=== PATIENT | female | born 1950 | race Caucasian/White ===

== ENCOUNTER 2016-05-01 09:34 | Day surgery (SDC) | payer MEDICARE, BC ==
[~2016-05-01 09:34] MED LIST: Metoclopramide 10 MG/2 ML SDV IV PRN; Sodium Chloride 0.9% 1,000 ML IV SCH; Sodium Chloride 0.9% 10 ML Syringe FLUSH PRN
[2016-05-01] MEDS ORDERED: Propofol 200 MG/20 ML SDV ONE (12:30)
[2016-05-01] MEDS ORDERED: Atropine 0.4 MG/ML SDV ONE (12:30)
[2016-05-01] MEDS ORDERED: Midazolam 1 MG/ML 5 ML SDV ONE (12:30)
--- NOTE | 2016-05-01 14:00 | OR ---
DATE OF OPERATION: PREOPERATIVE DIAGNOSIS: Screening colonoscopy. POSTOPERATIVE DIAGNOSES: 1. Diverticulosis coli. 2. No proctitis. OPERATION: Screening colonoscopy with biopsies. COMPLICATIONS: None. DRAINS: None. SPECIMENS: Rectal biopsies. ESTIMATED BLOOD LOSS: Minimal. ANESTHESIA: General propofol anesthesia. INDICATION: Mrs. Cid is a 65-year-old female, who is considered increased risk for colon cancer due to family history. She is here for a screening colonoscopy. She is currently asymptomatic. The above-mentioned procedure was explained. The risks, benefits, and complications were explained. The patient understood, agreed, and was brought to the operating room. DESCRIPTION OF PROCEDURE: The patient was brought to the operating room and placed in the left lateral decubitus position on the operating room table. Satisfactory general propofol anesthesia was administered. We began by performing a rectal examination, which was within normal limits. We then placed the endoscope by finger introduction into the rectum and subsequently advanced to the level of the cecum. Cecum was identified by the appendiceal orifice, the ileocecal valve, and the cecal strap. Then a careful evaluation of the mucosa was performed on withdrawal. This revealed no polyps, no telangiectasias; however, there was [id number] diverticulosis involving the transverse colon, the splenic flexure, descending colon, and the sigmoid colon. There were no neoplastic growths. The rectum did appear quite erythematous as well as granular in nature and this seemed to be isolated more towards the anterior wall of the rectum. We did take several biopsies of this tissue. Retroflexion in the rectum revealed no other abnormalities. The colon was then decompressed and the endoscope was withdrawn. The patient tolerated the procedure well. There were no complications. Instrument count was correct. MARQUIS/KATHIA /[id number]
[2016-05-01 14:31] VITALS: BP 144/75
== END 2016-05-01 14:30 | disposition home or self-care (01) ==
LOC: LB.SDS 09:34
PROVIDERS: ATTEND Surgery
DX: Z12.11 Encounter for screening for malignant neoplasm of colon (principal); K57.30 Diverticulosis of large intestine without perforation or abscess without bleeding; I25.10 Atherosclerotic heart disease of native coronary artery without angina pectoris; I10 Essential (primary) hypertension; F32.9 Major depressive disorder, single episode, unspecified; Z88.8 Allergy status to other drugs, medicaments and biological substances; Z79.82 Long term (current) use of aspirin; Z79.899 Other long term (current) drug therapy
CPT/HCPCS: 45380; 88305; J0461; J2250; J2704; J7040

== ENCOUNTER 2019-01-26 16:01 | Emergency (ER) | payer MEDICARE, OTHER ==
--- NOTE | 2019-01-26 17:43 | EDM.PDOC ---
ED HPI GENERAL MEDICAL PROBLEM - General Chief Complaint: General Stated Complaint: PASSED OUT Time Seen by Provider: 01/26/19 17:00 Source of Information: Reports: Patient, Family History Limitations: Reports: No Limitations - History of Present Illness INITIAL COMMENTS - FREE TEXT/NARRATIVE: This is a 68yo F who states she was taking a nap and then got up quickly to go into the kitchen and within minutes passed out. She does not recall passing out. Her son Jean was present and noted her thinking she tripped and then looking faint and then passing out for a very minimal time with full recovery in minutes and no lethargy or post-ictal symptoms. Patient states she is fine. She denies any prior episodes of this. She notes she did not drink anything all day, she had not eaten since the am and got up very quickly compared to her normal. Onset: Sudden Duration: Resolved Prior to Arrival Location: Reports: Generalized - Related Data Allergies Allergy/AdvReac Type Severity Reaction Status Date / Time propoxyphene HCl Allergy Anaphylactic Verified 05/28/14 19:15 [From [facility]] Shock Home Meds: Home Meds FLUoxetine HCl [Fluoxetine HCl] 40 mg PO DAILY 05/28/14 [History] Omeprazole 20 mg PO DAILY 05/28/14 [History] buPROPion [Wellbutrin XL] 300 mg PO DAILY 05/28/14 [History] Loperamide [Imodium] 2 mg PO Q6H PRN 07/22/14 [History] Metoprolol Tartrate [Lopressor] 75 mg PO Q12HR 07/23/14 [History] Tolterodine Tartrate [Detrol LA] 4 mg PO 04/30/16 [History] Past Medical History HEENT History: Reports: Cataract Cardiovascular History: Reports: High Cholesterol, Hypertension Respiratory History: Reports: Other (See Below) Other Respiratory History: SARCODOSIS Gastrointestinal History: Reports: Diverticulosis DEMOLITIONIST History: Reports: Other (See Below) Other DEMOLITIONIST History: 4 CHILDREN Musculoskeletal History: Reports: Fibromyalgia - Infectious Disease History Infectious Disease History: Reports: Chicken Pox, Measles, Shingles - Past Surgical History Cardiovascular Surgical History: Reports: None GI Surgical History: Reports: None Musculoskeletal Surgical History: Reports: None Social & Family History - Family History Oncologic: Reports: Breast, Colon, Lung, Other (See Below) Other Oncologic Family History: SISTER HAD COLON CANCER. SISTER WITH LUNG CANCER. SISTER WITH BREAST CANCER - Caffeine Use Caffeine Use: Reports: Coffee Caffeine Use Comment: 2-3 CUPS PER DAY ED ROS GENERAL - Review of Systems Review Of Systems: Comprehensive ROS is negative, except as noted in HPI. ED EXAM, GENERAL - Physical Exam Exam: See Below Exam Limited By: No Limitations General Appearance: Alert, WD/WN, No Apparent Distress Eye Exam: Bilateral Eye: EOMI, PERRL Ears: Normal External Exam Nose: Normal Inspection Throat/Mouth: Normal Inspection Head: Atraumatic, Normocephalic Neck: Normal Inspection Respiratory/Chest: No Respiratory Distress, Lungs Clear, Normal Breath Sounds Cardiovascular: Normal Peripheral Pulses, Regular Rate, Rhythm Peripheral Pulses: 2+: Dorsalis Pedis (L), Dorsalis Pedis (R) GI/Abdominal: Normal Bowel Sounds, Soft, Non-Tender Back Exam: Normal Inspection Extremities: Normal Inspection, Normal Range of Motion Neurological: Alert, Oriented, CN II-XII Intact, Normal Cognition Psychiatric: Normal Affect, Normal Mood Skin Exam: Warm, Dry, Intact Course - Vital Signs Last Recorded V/S: Last Vital Signs Temp 36.2 C 01/26/19 16:46 Pulse 64 01/26/19 16:46 Resp 18 01/26/19 16:46 BP 156/77 H 01/26/19 16:46 Pulse Ox 100 01/26/19 16:46 - Orders/Labs/Meds Labs: Laboratory Tests 01/26/19 Range/Units 16:11 POC Glucose 106 (74-110) mg/dL Departure - Departure Time of Disposition: 17:42 Disposition: Home, Self-Care 01 Condition: Good Clinical Impression: Vasovagal episode - Discharge Information Instructions: Orthostatic Hypotension, Hypotension, [id number], Zolpidem tablets Referrals: PCP,None [Primary Care Provider] - Forms: ED Department Discharge Additional Instructions: Discharge home. Change positions slowly, sitting for a bit before standing to prevent becoming light headed. Try to stick to 1 glass of wine a night to prevent dehydration. Out patient physical therapy for home exercises. Physical Therapy will call you at home. Ambien-Script will be sent over to the pharmacy. Follow up in the clinic as discussed. Sepsis Event Note - Evaluation Sepsis Screening Result: No Definite Risk - Focused Exam Vital Signs: Vital Signs Temp Pulse Resp BP Pulse Ox 01/26/19 16:46 36.2 C 64 18 156/77 H 100 Date Exam was Performed: 01/26/19 Time Exam was Performed: 17:39 - Problem List & Annotations (1) Vasovagal episode SNOMED Code(s): 589410719 Code(s): R55 - SYNCOPE AND COLLAPSE Status: Resolved Priority: High - Problem List Review Problem List Initiated/Reviewed/Updated: Yes - Assessment/Plan Plan: Counseled on vasovagal response and prevention. Discussed hydration and management. Discussed supportive care and f/u in clinic or ER as needed. Rtc as directed for f/u.
[2019-01-26 18:21] VITALS: BP 150/76; PULSE 63
== END 2019-01-26 17:30 | disposition home or self-care (01) ==
LOC: LB.ED 16:01
DX: R55 Syncope and collapse (principal); I10 Essential (primary) hypertension; Z88.8 Allergy status to other drugs, medicaments and biological substances
CPT/HCPCS: 82962; 99283; 99284

== ENCOUNTER 2021-03-31 11:21 | Inpatient (IN) | payer MEDICARE, OTHER ==
[2021-03-31] MEDS ORDERED: Sodium Chloride 0.9% 10 ML Syringe FLUSH PRN (12:02)
[2021-03-31] MEDS ORDERED: Sodium Chloride 0.9% 1,000 ML IV SCH ×2 (12:15→19:00)
[2021-03-31] MEDS ORDERED: Morphine 2 MG/ML SYRINGE IVPUSH ONE (13:18)
[2021-03-31] MEDS ORDERED: Ketorolac 30 MG/ML SDV IVPUSH ONE (13:18)
[2021-03-31] MEDS ORDERED: Iopamidol 612 MG/ML 100 ML Bottle IV PRN (13:22)
[2021-03-31] MEDS ORDERED: Sodium Chloride 0.9% 50 ML SDV FLUSH SCH (13:30)
[2021-03-31] MEDS ORDERED: Morphine 2 MG/ML SYRINGE ONE ×2 (13:36→14:27)
[2021-03-31] MEDS ORDERED: Ketorolac 30 MG/ML SDV ONE (13:36)
[2021-03-31] MEDS ORDERED: HYDROmorphone 2 MG/ML SDV ONE (14:55)
[2021-03-31] MEDS ORDERED: HYDROmorphone 2 MG/ML SDV IM ONE (15:41)
[2021-03-31] MEDS ORDERED: HYDROmorphone 2 MG/ML SDV IVPUSH ONE (15:42)
[2021-03-31] MEDS ORDERED: LORazepam 2 MG/ML SDV ONE (16:33)
[2021-03-31] MEDS ORDERED: LORazepam 2 MG/ML SDV IVPUSH ONE (16:43)
[2021-03-31] MEDS ORDERED: Morphine 2 MG/ML SYRINGE IVPUSH PRN (18:58)
[2021-03-31] MEDS ORDERED: LORazepam 2 MG/ML SDV IV PRN (18:58)
[2021-03-31] MEDS: Morphine 2 MG/ML SYRINGE IVPUSH PRN (23:15)
[2021-04-01] MEDS: oxyCODONE 5 MG Tab PO PRN ×5 (00:31→22:49)
[2021-04-01] MEDS: Acetaminophen 325 MG Tab PO SCH ×7 (00:31→20:03)
[2021-04-01] MEDS: Morphine 2 MG/ML SYRINGE IVPUSH PRN (16:00)
[2021-04-01] MEDS ORDERED: LORazepam 2 MG/ML SDV IVPUSH PRN (16:37)
[2021-04-01] MEDS ORDERED: Sodium Chloride 0.9% 1,000 ML IV SCH (16:45)
[2021-04-01] MEDS: Pantoprazole 40 MG Tab.CR PO SCH (17:03)
[2021-04-01] MEDS: METOPROLOL TARTRATE 50 MG PO SCH (20:02)
[2021-04-01] MEDS: Non-Formulary Medication 1 Each (Atorvastatin Calcium [Atorvastatin Calcium] 40 MG Tablet) PO SCH (20:03)
[2021-04-01] MEDS: LORazepam 1 MG Tab PO PRN (20:04)
[2021-04-01] MEDS: LOPERAMIDE 2 MG PO PRN (20:10)
[2021-04-02] MEDS: Acetaminophen 325 MG Tab PO SCH ×6 (05:01→19:33)
[2021-04-02] MEDS: oxyCODONE 5 MG Tab PO PRN ×4 (05:02→19:30)
[2021-04-02] MEDS: Non-Formulary Medication 1 Each (Hydrochlorothiazide [Hydrochlorothiazide] 25 MG Tablet) PO SCH (08:41)
[2021-04-02] MEDS: Non-Formulary Medication 1 Each (Fluoxetine Hcl [Fluoxetine Hcl] 40 MG Capsule) PO SCH (08:41)
[2021-04-02] MEDS: METOPROLOL TARTRATE 50 MG PO SCH ×2 (08:42→19:32)
[2021-04-02] MEDS: Pantoprazole 40 MG Tab.CR PO SCH (08:43)
[2021-04-02] MEDS: LOPERAMIDE 2 MG PO PRN (08:47)
[2021-04-02] MEDS ORDERED: Docusate Sodium 100 MG Cap PO PRN (11:47)
[2021-04-02] MEDS: Orphenadrine 60 MG/2 ML Inj IV SCH (13:30)
[2021-04-02] MEDS: Enoxaparin 40 MG/0.4 ML Syringe SUBCUT SCH (16:22)
[2021-04-02] MEDS: LORazepam 1 MG Tab PO PRN (19:27)
[2021-04-02] MEDS: Non-Formulary Medication 1 Each (Atorvastatin Calcium [Atorvastatin Calcium] 40 MG Tablet) PO SCH (19:32)
[2021-04-03] MEDS: oxyCODONE 5 MG Tab PO PRN ×5 (01:58→19:18)
[2021-04-03] MEDS: Orphenadrine 60 MG/2 ML Inj IV SCH ×2 (01:58→13:16)
[2021-04-03] MEDS: Acetaminophen 325 MG Tab PO SCH ×6 (02:06→19:38)
[2021-04-03] MEDS: Pantoprazole 40 MG Tab.CR PO SCH (07:46)
[2021-04-03] MEDS: Non-Formulary Medication 1 Each (Fluoxetine Hcl [Fluoxetine Hcl] 40 MG Capsule) PO SCH (07:47)
[2021-04-03] MEDS: Non-Formulary Medication 1 Each (Hydrochlorothiazide [Hydrochlorothiazide] 25 MG Tablet) PO SCH (07:47)
[2021-04-03] MEDS: METOPROLOL TARTRATE 50 MG PO SCH ×2 (07:49→20:00)
[2021-04-03] MEDS: LOPERAMIDE 2 MG PO PRN (08:21)
[2021-04-03] MEDS: Cephalexin 500 MG Cap PO SCH ×2 (10:42→22:30)
[2021-04-03] MEDS ORDERED: Orphenadrine 60 MG/2 ML Inj ONE (13:25)
[2021-04-03] MEDS: Enoxaparin 40 MG/0.4 ML Syringe SUBCUT SCH (16:14)
[2021-04-03] MEDS: LORazepam 1 MG Tab PO PRN (19:37)
[2021-04-03] MEDS: Non-Formulary Medication 1 Each (Atorvastatin Calcium [Atorvastatin Calcium] 40 MG Tablet) PO SCH (19:45)
[2021-04-04] MEDS: Acetaminophen 325 MG Tab PO SCH ×7 (00:13→22:30)
[2021-04-04] MEDS: oxyCODONE 5 MG Tab PO PRN ×5 (00:16→20:24)
[2021-04-04] MEDS: Orphenadrine 60 MG/2 ML Inj IV SCH (01:58)
[2021-04-04] MEDS ORDERED: Orphenadrine 60 MG/2 ML Inj ONE (02:07)
[2021-04-04] MEDS: Pantoprazole 40 MG Tab.CR PO SCH (06:24)
[2021-04-04] MEDS: LORazepam 1 MG Tab PO PRN (06:26)
[2021-04-04] MEDS: METOPROLOL TARTRATE 50 MG PO SCH ×2 (08:40→20:00)
[2021-04-04] MEDS: Docusate Sodium 100 MG Cap PO SCH ×2 (08:40→19:59)
[2021-04-04] MEDS: Non-Formulary Medication 1 Each (Fluoxetine Hcl [Fluoxetine Hcl] 40 MG Capsule) PO SCH (08:41)
[2021-04-04] MEDS: Non-Formulary Medication 1 Each (Hydrochlorothiazide [Hydrochlorothiazide] 25 MG Tablet) PO SCH (08:41)
[2021-04-04] MEDS: Cephalexin 500 MG Cap PO SCH ×2 (09:30→22:30)
[2021-04-04] MEDS: Enoxaparin 40 MG/0.4 ML Syringe SUBCUT SCH (16:28)
[2021-04-04] MEDS: Non-Formulary Medication 1 Each (Atorvastatin Calcium [Atorvastatin Calcium] 40 MG Tablet) PO SCH (19:59)
[2021-04-04] MEDS: ORPHENADRINE 100 MG PO SCH (19:59)
[2021-04-05] MEDS: oxyCODONE 5 MG Tab PO PRN ×4 (00:16→12:35)
[2021-04-05] MEDS: Acetaminophen 325 MG Tab PO SCH ×3 (03:45→10:32)
[2021-04-05] MEDS: Pantoprazole 40 MG Tab.CR PO SCH (06:41)
[2021-04-05] MEDS ORDERED: buPROPion 150 MG Tab.ER PO SCH (08:00)
[2021-04-05] MEDS: Docusate Sodium 100 MG Cap PO SCH (08:41)
[2021-04-05] MEDS: Non-Formulary Medication 1 Each (Hydrochlorothiazide [Hydrochlorothiazide] 25 MG Tablet) PO SCH (08:44)
[2021-04-05] MEDS: ORPHENADRINE 100 MG PO SCH (08:46)
[2021-04-05] MEDS: METOPROLOL TARTRATE 50 MG PO SCH (08:46)
[2021-04-05] MEDS ORDERED: FLUoxetine 20 MG Cap ONE (08:52)
[2021-04-05] MEDS: Non-Formulary Medication 1 Each (Fluoxetine Hcl [Fluoxetine Hcl] 40 MG Capsule) PO SCH (08:52)
[2021-04-05 08:59] VITALS: BP 151/69; PULSE 59
[2021-04-05] MEDS: Cephalexin 500 MG Cap PO SCH (09:08)
[2021-04-05] MEDS ORDERED: Cephalexin 500 MG Cap ONE ×2 (09:53→10:00)
== END 2021-04-05 14:30 | disposition home or self-care (01) | DRG 563 ==
LOC: LB.ED 11:21 → LB.MS 18:47 → UNDOADMOB 18:47 → LB.MS 18:58 → OBSVTOIN 04-02 11:48
PROVIDERS: ADMIT Physician Assistant; ATTEND Physician Assistant
DX: S42.295A Other nondisplaced fracture of upper end of left humerus, initial encounter for closed fracture (principal); S22.41XA Multiple fractures of ribs, right side, initial encounter for closed fracture; N39.0 Urinary tract infection, site not specified; S42.292A Other displaced fracture of upper end of left humerus, initial encounter for closed fracture; E87.1 Hypo-osmolality and hyponatremia; R53.1 Weakness; R63.8 Other symptoms and signs concerning food and fluid intake; Z91.81 History of falling; S22.42XA Multiple fractures of ribs, left side, initial encounter for closed fracture; W19.XXXA Unspecified fall, initial encounter; R52 Pain, unspecified; F41.9 Anxiety disorder, unspecified; F10.10 Alcohol abuse, uncomplicated; K21.9 Gastro-esophageal reflux disease without esophagitis; K59.03 Drug induced constipation; T40.605A Adverse effect of unspecified narcotics, initial encounter; Z79.82 Long term (current) use of aspirin; E78.00 Pure hypercholesterolemia, unspecified; I10 Essential (primary) hypertension; D86.9 Sarcoidosis, unspecified; K57.90 Diverticulosis of intestine, part unspecified, without perforation or abscess without bleeding; M79.7 Fibromyalgia; Z88.8 Allergy status to other drugs, medicaments and biological substances; Z79.899 Other long term (current) drug therapy; Z20.822 Contact with and (suspected) exposure to COVID-19
CPT/HCPCS: 36415 ×3; 71260; 73030; 73200; 74177; 80048 ×2; 80053; 80307; 81001; 82550; 83874; 84100; 84484; 85025 ×2; 87086; 87186; 93005; 96372; 96374; 96375; 96376 ×2; 97161; 97530; 99285; A0425; A0429; A9270 ×26; G0378 ×4; J1170 ×2; J1885; J2060 ×2; J2270 ×3; J7030 ×2; U0002; 90662; 97110-GO; 97110-GP; 97116-GP; 97166-GO; J1650; J2360

== ENCOUNTER 2023-03-23 17:11 | Emergency (ER) | payer MEDICARE, OTHER ==
[2023-03-23 18:15] LABS: HEMOGLOBIN 14.2 g/dL (11.5-16.5); MEAN CORPUSCULAR HEMOGLOBIN 34.9 pg (27.0-32.0); MEAN CORPUSCULAR HGB CONC 32.3 g/dL (31.0-35.0); RED BLOOD CELL COUNT 4.07 M/uL (3.80-5.80); WHITE BLOOD CELL COUNT,WBC 6.1 K/uL (4.0-11.0)
[2023-03-23] MEDS: Bacitracin Oint 1 GM U/D Packet TOP SCH (18:30)
[2023-03-23 18:37] LABS: A/G RATIO 0.8 (0.8-2.0); ALBUMIN 3.3 g/dL (3.4-5.0); ANION GAP 17.4 mmol/L (5.0-15.0); BILIRUBIN TOTAL 0.3 mg/dL (0.0-1.0); BUN/CREATININE RATIO 18.2 (6-25); CALCIUM 8.7 mg/dL (8.5-10.1); CARBON DIOXIDE,CO2 24.2 mmol/L (21.0-32.0); CREATININE 0.55 mg/dL (0.55-1.02); EST CRCL DRUG DOSING (CG) 70.98 mL/min; POTASSIUM,K 4.6 mmol/L (3.5-5.1); PROTEIN TOTAL,TP 7.4 g/dL (6.4-8.2)
[2023-03-23 20:35] VITALS: BP 182/93; PULSE 80
== END 2023-03-23 19:15 | disposition home or self-care (01) ==
LOC: LB.ED 17:11
DX: S00.03XA Contusion of scalp, initial encounter (principal); S01.01XA Laceration without foreign body of scalp, initial encounter; I10 Essential (primary) hypertension; E78.00 Pure hypercholesterolemia, unspecified; Z88.8 Allergy status to other drugs, medicaments and biological substances; W01.0XXA Fall on same level from slipping, tripping and stumbling without subsequent striking against object, initial encounter; Z79.899 Other long term (current) drug therapy
CPT/HCPCS: 36415; 70450; 80053; 80307; 85027; 99283; 99284